=== PATIENT | female | born 1965 | race Caucasian/White ===

== ENCOUNTER → 2020-07-09 | Outpatient (CLI) | payer OTHER ==
[~2020-07-09] MED LIST: DITROPAN 5 MG TA5 MG PO; DOCUSATE SODIU250 MG PO; HYDROCODON-ACE1 EAC6 PO; HYDROCODONE-AC1 EACH PO; IBUPROFEN600 MG PO
[2020-07-09 12:13] LABS: HEMOGLOBIN 12.8 gm/dl (12.3-15.3); RED BLOOD COUNT 4.28 M/UL (4.00-5.10); WHITE BLOOD COUNT 7.1 K/UL (4.5-11.0)
[2020-07-09 12:36] LABS: BUN/CREATININE RATIO 19 (0-10)
== END ==
LOC: OPSV2 10:30
PROVIDERS: Obstetrics & Gynecology
DX: Z01.812 Encounter for preprocedural laboratory examination (principal); Z01.810 Encounter for preprocedural cardiovascular examination; N81.9 Female genital prolapse, unspecified; I10 Essential (primary) hypertension
CPT/HCPCS: 36415; 80053; 81001; 85025; 93005

== ENCOUNTER 2020-07-15 10:41 | Day surgery (SDC) | payer MEDICAID ==
[~2020-07-15] VITALS: Ht 152.4 cm; Wt 544.3 kg
[2020-07-15] MEDS ORDERED: HYDROCODON-ACE1 EAC6 PO (11:46)
[2020-07-15] MEDS ORDERED: IBUPROFEN600 MG PO (16:18)
[2020-07-15] MEDS ORDERED: HYDROCODONE-AC1 EACH PO (16:18)
[2020-07-15] MEDS ORDERED: DOCUSATE SODIU250 MG PO (16:18)
[2020-07-15] MEDS ORDERED: DITROPAN 5 MG TA5 MG PO (16:18)
== END 2020-07-16 16:24 | disposition home or self-care (01) ==
LOC: ZOBSOF 10:41 → OR 10:41 → M/S 10:41 → EDSTATUS 15:45 → ZOBSOF 20:28 → M/S 20:28 → OR 07-16 16:24
DX: N81.10 Cystocele, unspecified (principal); R33.9 Retention of urine, unspecified; I10 Essential (primary) hypertension; K44.9 Diaphragmatic hernia without obstruction or gangrene; K21.9 Gastro-esophageal reflux disease without esophagitis; Z88.0 Allergy status to penicillin; Z86.73 Personal history of transient ischemic attack (TIA), and cerebral infarction without residual deficits
CPT/HCPCS: 93005; C1769; J1100; J1580; J2001; J2250; J2270; J2405; J2704; J2710; J3010; J7050; J7120

== ENCOUNTER → 2021-05-27 | Outpatient (CLI) | payer MEDICAID | LOC: KOH-I 13:30 | DX: F17.210 Nicotine dependence, cigarettes, uncomplicated (principal); R91.8 Other nonspecific abnormal finding of lung field | CPT/HCPCS: 71271 ==